=== PATIENT | female | born 1980 | race Caucasian/White ===

== ENCOUNTER 2024-03-03 09:46 | Day surgery (SDC) | payer OTHER ==
[~2024-03-03] VITALS: Ht 154.9 cm; Wt 68.5 kg
[2024-03-03] MEDS ORDERED: MIDAZOLAM 5 MG/5 ML VIAL ONE (10:15)
[2024-03-03] MEDS ORDERED: fentaNYL citrate 0.05 MG/ML VIAL ONE (10:15)
[2024-03-03] MEDS ORDERED: LIDOCAINE 2% 100 MG/5 ML UJET TP ONE (10:15)
[2024-03-03] MEDS: fentaNYL citrate 0.05 MG/ML VIAL IVP ONE (11:00)
== END 2024-03-03 12:12 | disposition home or self-care (01) ==
LOC: MDS 09:46 → MMU 09:48 → MDS 12:12
PROVIDERS: ATTEND Internal Medicine Gastroenterology
DX: Z12.11 Encounter for screening for malignant neoplasm of colon (principal); E11.9 Type 2 diabetes mellitus without complications; Z79.899 Other long term (current) drug therapy
CPT/HCPCS: 45378; 82948; J3010; J2250